=== PATIENT | female | born 1955 ===

== ENCOUNTER 2025-05-25 11:08 | Emergency (ER) | payer OTHER ==
[~2025-05-25] VITALS: Ht 160 cm; Wt 96.3 kg
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
[2025-05-25] MEDS: ACETAMINOPHEN 325 MG TAB PO ONE (12:18)
[2025-05-25 13:42] VITALS: BP 152/70; PULSE 95; RESP 16; TEMP 98.8; O2SAT 95
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
[2025-05-25] MEDS ORDERED: METH-1182 PO (14:13)
[2025-05-25] MEDS ORDERED: IBUP-1456 PO (14:13)
== END 2025-05-25 14:21 | disposition home or self-care (01) ==
LOC: ER 11:08 → EDBD 11:08 → ER 14:20
DX: S16.1XXA Strain of muscle, fascia and tendon at neck level, initial encounter (principal); G44.89 Other headache syndrome; E11.9 Type 2 diabetes mellitus without complications; V49.88XA Car occupant (driver) (passenger) injured in other specified transport accidents, initial encounter; Y93.I9 Activity, other involving external motion; Y92.488 Other paved roadways as the place of occurrence of the external cause; Y99.8 Other external cause status
CPT/HCPCS: 70450; 72040